=== PATIENT | female | born 1995 | race African-American/Black ===

== ENCOUNTER 2016-09-29 00:58 | Emergency (ER) | payer OTHER ==
[~2016-09-29] VITALS: Ht 170.2 cm; Wt 122.5 kg
[~2016-09-29 00:58] MED LIST: ZOFR4TAB PO
[2016-09-29 01:01] VITALS: BP 137/66; PULSE 136; RESP 20; TEMP 102.8; O2SAT 96
[2016-09-29 01:53] VITALS: BP 142/74; PULSE 119; RESP 18; O2SAT 100
[2016-09-29] MEDS ORDERED: ACETAMINOPHEN 325 MG TAB PO ONE (02:15)
[2016-09-29] MEDS ORDERED: ONDANSETRON HCL 4 MG/2 ML VIAL IV ONE (02:15)
[2016-09-29] MEDS ORDERED: SODIUM CHLOR 0.9% 1000 ML INJ 1,000 ML IV ONE ×2 (02:15→03:15)
[2016-09-29 02:30] VITALS: O2SAT 100
[2016-09-29 02:34] LABS: AUTOMATED NEUTROPHIL # 6.7 TH/MM3 (1.8-7.7); BASOPHIL % 0.3 % (0.0-2.0); EOSINOPHIL % 0.1 % (0.0-4.0); HEMATOCRIT 30.1 % (35.0-46.0); HEMO FLAGS AUTO DIFF; LYMPH % 2.5 % (9.0-44.0); LYMPHOCYTE # 0.2 TH/MM3 (1.0-4.8); MEAN CELL VOLUME 63.8 FL (80.0-100.0); MEAN CORPUSCULAR HEMOGLOBIN 20.4 PG (27.0-34.0); MONO % 7.1 % (0.0-8.0); PLATELET COUNT 258 TH/MM3 (150-450); RED BLOOD COUNT 4.72 MIL/MM3 (4.00-5.30); WHITE BLOOD COUNT 7.4 TH/MM3 (4.0-11.0)
[2016-09-29 02:48] LABS: ALT (GPT) 28 U/L (10-53); ANION GAP 8 MEQ/L (5-15); AST (GOT) 15 U/L (15-37); BICARBONATE 24.7 MEQ/L (21.0-32.0); BLOOD UREA NITROGEN 10 MG/DL (7-18); CHLORIDE 107 MEQ/L (98-107); GLOMERULAR FILTRATION RATE 79 ML/MIN (>89); POTASSIUM 3.4 MEQ/L (3.5-5.1); SODIUM (NA) 140 MEQ/L (136-145)
[2016-09-29 02:51] LABS: ALKALINE PHOSPHATASE 76 U/L (45-117); TOTAL BILIRUBIN ADULT 0.3 MG/DL (0.2-1.0)
[2016-09-29 03:10] LABS: OVALOCYTES 1+ (NORMAL); SCAN/DIFF AUTO DIFF CONFIRMED
[2016-09-29] MEDS ORDERED: OSELTAMIVIR PHOSPHATE 75 MG CAP PO ONE (03:15)
[2016-09-29] MEDS ORDERED: KETOROLAC TROMETHAMINE 30 MG/ML (IVP) VIAL IV PUSH ONE (03:15)
[2016-09-29] MEDS ORDERED: ZOFR4TAB3 SL (03:21)
[2016-09-29] MEDS ORDERED: OSEL75 PO (03:21)
--- NOTE | 2016-09-29 03:29 | PD ---
HPI Chief Complaint: Cold / Flu Symptoms Time Seen by Provider: 02:02 Travel History International Travel<30 days: No Contact w/Intl Traveler<30days: No Traveled to known affect area: No History of Present Illness HPI The patient is a 21 year old female who presents to the [facility] emergency department with a history of cough, congestion, body aches that began 2 days ago. She reports that several people at her job are currently sick with cough and congestion. She denies getting her influenza vaccination. The patient reports that her cough is been productive of yellow sputum. She reports that her nasal discharge is clear in color. She reports that she began to have fevers and chills. She reports a two-day she's had nausea and vomiting 2. She reports have an associated bitemporal headache. She denies having any neck pain. The patient denies any recent chest pain, shortness of breath, abdominal pain, diarrhea, urinary symptoms, or neurologic symptoms. LMP: August 17, 2016. She denies any possibility of being . She reports that her menstrual cycles are irregular. [facility] Past Medical History Narrative Medical The patient's past medical history is significant for irregular menstrual cycles , history of asthma Asthma: Yes Diminished Hearing: No Immunizations Current: Yes ?: Not LMP: 08/17/16 Past Surgical History Narrative Surgical The patient's past surgical history is significant for an appendectomy. Appendectomy: Yes Genitourinary Surgery: No Other Surgery: No Social History Alcohol Use: Yes (OCC) Tobacco Use: No Substance Use: No (DENIES) Allergies-Medications (Allergen,Severity, Reaction): Coded Allergies: No Known Allergies (Verified , 09/29/16) Reported Meds & Prescriptions Reported Meds & Active Scripts Active Zofran Odt (Ondansetron Odt) 4 Mg Tab 4 Mg SL Q6HR PRN Tamiflu (Oseltamivir Phosphate) 75 Mg Cap 75 Mg PO BID Zofran (Ondansetron HCl) 4 Mg Tab 4 Mg PO Q6HR PRN Review of Systems Except as stated in HPI: all other systems reviewed are Neg General / Constitutional: Positive: Fever, Chills Eyes: No: Visual changes HENT: Positive: Headaches, Rhinorrhea, Congestion, No: Neck Stiffness, Neck Pain Cardiovascular: No: Chest Pain or Discomfort, Dyspnea on exertion Respiratory: Positive: Cough, No: Shortness of Breath Gastrointestinal: Positive: Nausea, Vomiting, Loss of Appetite, No: Diarrhea, Abdominal Pain, Changes in Bowel Habits, Indigestion Genitourinary: No: Dysuria, Flank Pain Musculoskeletal: Positive: Myalgias, No: Pain Skin: No Rash Neurologic: Positive: Weakness (generalized weakness), Headache, No: Focal Abnormalities, Change in Mentation, Slurred Speech, Sensory Disturbance Psychiatric: No: Depression Endocrine: No: Polydipsia Hematologic/Lymphatic: No: Easy Bruising Physical Exam Narrative General: The patient is a well-developed well-nourished female in no acute distress. Head and Neck exam: Head is normocephalic atraumatic. Eyes: Pupils are equal round and reactive to light. Nose: Midline septum with erythematous edematous nasal mucosa and a clear nasal discharge. Mouth: Dentition unremarkable. Moist mucus membranes. Posterior oropharynx is slightly erythematous. No tonsillar hypertrophy. Uvula midline. Airway patent. Neck: No palpable lymphadenopathy. No nuchal rigidity. No thyromegaly. Cardiovascular: Sinus tachycardia in the low 100s without murmurs, gallops, or rubs. Lungs: Clear to auscultation bilaterally. No wheezes, rhonchi, or rales. Abdomen: Soft, without tenderness to palpation in all 4 quadrants of the abdomen. No guarding, rebound, or rigidity. Normal bowel sounds are audible. No tenderness on palpation of McBurney's point. Extremities: No clubbing, cyanosis, or edema. 2+ pulses in all 4 extremities. No calf tenderness on palpation. Back: No spinous process tenderness to palpation. No costovertebral angle tenderness to palpation. Neurologic Exam: Grossly nonfocal. Skin Exam: No rash noted. Intact skin that is warm and dry. Data Data Last Documented VS Vital Signs Date Time Temp Pulse Resp B/P Pulse Ox O2 Delivery O2 Flow Rate FiO2 09/29/16 05:17 99.0 100 18 129/63 100 Room Air Orders Complete Blood Count With Diff (09/29/16 02:03) Comprehensive Metabolic Panel (09/29/16 02:03) Blood Culture (09/29/16 02:03) Lipase (09/29/16 02:03) Urinalysis - C+S If Indicated (09/29/16 02:03) Influenzae A/B Antigen (09/29/16 02:03) Iv Access Insert/Monitor (09/29/16 02:03) Ecg Monitoring (09/29/16 02:03) Oximetry (09/29/16 02:03) Ed Urine Pregnancytest Poc (09/29/16 02:03) Lactic Acid Sepsis Protocol (09/29/16 02:03) Sodium Chlor 0.9% 1000 Ml Inj (Ns 1000 M (09/29/16 02:15) Ondansetron Inj (Zofran Inj) (09/29/16 02:15) Acetaminophen (Tylenol) (09/29/16 02:15) Sodium Chlor 0.9% 1000 Ml Inj (Ns 1000 M (09/29/16 03:15) Ketorolac Inj (Toradol Inj) (09/29/16 03:15) Oseltamivir (Tamiflu) (09/29/16 03:15) Chest, Single Ap (09/29/16 03:29) Labs Laboratory Tests Test 09/29/16 09/29/16 02:20 03:55 White Blood Count 7.4 TH/MM3 Red Blood Count 4.72 MIL/MM3 Hemoglobin 9.7 GM/DL Hematocrit 30.1 % Mean Corpuscular Volume 63.8 FL Mean Corpuscular Hemoglobin 20.4 PG Mean Corpuscular Hemoglobin 32.0 % Concent Red Cell Distribution Width 19.0 % Platelet Count 258 TH/MM3 Mean Platelet Volume 8.8 FL Neutrophils (%) (Auto) 90.0 % Lymphocytes (%) (Auto) 2.5 % Monocytes (%) (Auto) 7.1 % Eosinophils (%) (Auto) 0.1 % Basophils (%) (Auto) 0.3 % Neutrophils # (Auto) 6.7 TH/MM3 Lymphocytes # (Auto) 0.2 TH/MM3 Monocytes # (Auto) 0.5 TH/MM3 Eosinophils # (Auto) 0.0 TH/MM3 Basophils # (Auto) 0.0 TH/MM3 CBC Comment AUTO DIFF Differential Comment AUTO DIFF CONFIRMED Ovalocytes 1+ Sodium Level 140 MEQ/L Potassium Level 3.4 MEQ/L Chloride Level 107 MEQ/L Carbon Dioxide Level 24.7 MEQ/L Anion Gap 8 MEQ/L Blood Urea Nitrogen 10 MG/DL Creatinine 1.04 MG/DL Estimat Glomerular Filtration 79 ML/MIN Rate Random Glucose 107 MG/DL Lactic Acid Level 1.0 mmol/L Calcium Level 8.8 MG/DL Total Bilirubin 0.3 MG/DL Aspartate Amino Transf 15 U/L (AST/SGOT) Alanine Aminotransferase 28 U/L (ALT/SGPT) Alkaline Phosphatase 76 U/L Total Protein 7.7 GM/DL Albumin 3.6 GM/DL Lipase 65 U/L Urine Color LIGHT-YELLOW Urine Turbidity CLEAR Urine pH 5.5 Urine Specific Walters 1.011 Urine Protein NEG mg/dL Urine Glucose (UA) NEG mg/dL Urine Ketones NEG mg/dL Urine Occult Blood NEG Urine Nitrite NEG Urine Bilirubin NEG Urine Urobilinogen LESS THAN 2.0 MG/DL Urine Leukocyte Esterase NEG Urine RBC LESS THAN 1 /hpf Urine WBC 1 /hpf Urine Squamous Epithelial 1 /hpf Cells Urine Mucus FEW /lpf Microscopic Urinalysis Comment CULT NOT INDICATED MDM Medical Decision Making Medical Screen Exam Complete: Yes Emergency Medical Condition: Yes Medical Record Reviewed: Yes Interpretation(s) Last Impressions Chest X-Ray 09/29/16 0329 Signed Impressions: Service Date/Time: Thursday, September 29, 2016 03:42 - CONCLUSION: No acute disease. Josias Lee MD Differential Diagnosis Influenza, versus pneumonia, versus bronchitis, versus viral syndrome, versus dehydration, versus pyelonephritis Narrative Course During the course of the patients emergency department visit, the patients history, examination, and differential diagnosis were reviewed with the patient. The patient had IV access obtained and blood work sent for analysis. The patient was placed on a clinical research monitor with oximetry and blood pressure monitoring. The patient was provided normal saline 1 L IV fluid bolus, Zofran 4 mg IV 1, Tylenol 650 by mouth 1. The patient was given Toradol 15 mg IV times one for body aches. The patients laboratory studies were reviewed and remarkable for influenza antigen a was positive. White count is 7.4, hemoglobin 9.7, platelets 258 with 90.0 neutrophils, lymphocytes 2.5, CMP is remarkable for a potassium of 3.4, creatinine 1.04, glucose 107, lactic acid 1.0, lipase 25. The patient was given a second liter of normal saline IV fluids. The patient was started on Tamiflu 75 mg by mouth 1. Radiology studies were reviewed and remarkable for a chest x-ray that shows no acute abnormality. The patient will be discharged home with a work excuse for the next few days. The patient was given a prescription for Tamiflu and Zofran. The patient is resting comfortably and feels better, is alert and in no distress. The patients results and examination findings were discussed with the patient. The repeat examination is unremarkable and benign. The history, exam, diagnostic testing, and current condition do not suggest any significant pathology to warrant further testing, continued ED treatment, admission, or surgical evaluation at this point. The vital signs have been stable. The patient does not have uncontrollable pain, intractable vomiting, or other significant symptoms. The patient's condition is stable and appropriate for discharge. The patient will pursue further outpatient evaluation with a primary care physician or other designated or consulting physician as indicated in the discharge instructions. The patient expressed understanding and was agreeable with this plan. Diagnosis Primary Impression: Influenza A Referrals: Primary Care Physician 1 week Patient Instructions: General Instructions, H1N1 Influenza (ED) Departure Forms: Tests/Procedures, Work Release Enter return to work date: Oct 02, 2016 Med/Other Pt SpecificInfo: Prescription(s) given Scripts Ondansetron Odt (Zofran Odt)4 Mg Tab4 Mg SL Q6HR PRN (Nausea/Vomiting) #7 TAB Ref 0 Prov:Nani Watt MD 09/29/16 Oseltamivir (Tamiflu)75 Mg Cap75 Mg PO BID #9 CAP Ref 0 Prov:Nani Watt MD 09/29/16 Disposition: 01 DISCHARGE HOME Condition: Stable Nani Watt MD Sep 29, 2016 03:29
[2016-09-29 04:23] LABS: BLOOD, URINE NEG (NEG); COMMENT (UR) CULT NOT INDICATED; CULTURE IF INDICATED CULT NOT INDICATED; GLUCOSE,URINE NEG (NEG); KETONE, URINE NEG (NEG); MUCUS URINE FEW /lpf (OCC); NITRITE,URINE NEG (NEG); PH, URINE 5.5 (5.0-8.5); SQUAMOUS EPITHELIAL CELL URINE 1 /hpf (0-5); URINE COLOR LIGHT-YELLOW (YELLW/STRAW)
--- NOTE | 2016-09-29 05:16 | RADRPT ---
EXAM DATE/TIME: 09/29/2016 03:42 [facility] COMPARISON: No previous studies available for comparison. INDICATIONS : Pt having cough, fever, and flu symptoms x 3 days. MEDICAL HISTORY : None. SURGICAL HISTORY : None. ENCOUNTER: Initial ACUITY: 3 days PAIN SCORE: 8/10 LOCATION: Bilateral chest FINDINGS: A single view of the chest demonstrates the lungs to be symmetrically aerated without evidence of mas s, infiltrate or effusion. The cardiomediastinal contours are unremarkable. Osseous structures are intact. CONCLUSION: No acute disease. Josias Lee MD on September 29, 2016 at 5:14 Board Certified Radiologist. This report was verified electronically.
[2016-09-29 05:17] VITALS: BP 129/63; PULSE 100; RESP 18; TEMP 99; O2SAT 100
== END 2016-09-29 05:33 | disposition home or self-care (01) ==
LOC: NEPE 00:58
DX: J09.X2 Influenza due to identified novel influenza A virus with other respiratory manifestations (principal); R11.2 Nausea with vomiting, unspecified; J45.909 Unspecified asthma, uncomplicated
CPT/HCPCS: 71010; 80053; 81001; 83605; 83690; 84703; 85025; 87040; 87804; 96361; 96374; 96375; 99284; J1885; J2405; J7030

== ENCOUNTER 2016-11-21 21:05 | Emergency (ER) | payer OTHER ==
[~2016-11-21] VITALS: Ht 170.2 cm; Wt 118.0 kg
[~2016-11-21 21:05] MED LIST changes: +OSEL75 PO; +ZOFR4TAB3 SL
[2016-11-21 21:07] VITALS: BP 137/73; PULSE 98; RESP 14; TEMP 97.8; O2SAT 96
[2016-11-21] MEDS ORDERED: CYCLOBENZAPRINE HCL 10 MG TAB PO ONE (22:15)
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
[2016-11-21] MEDS ORDERED: NAPR500 PO (22:22)
[2016-11-21] MEDS ORDERED: CYCL1TAB29 PO (22:22)
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
== END 2016-11-21 23:17 | disposition home or self-care (01) ==
LOC: NETRI 21:05
DX: S16.1XXA Strain of muscle, fascia and tendon at neck level, initial encounter (principal); S39.012A Strain of muscle, fascia and tendon of lower back, initial encounter; Z87.09 Personal history of other diseases of the respiratory system; V89.2XXA Person injured in unspecified motor-vehicle accident, traffic, initial encounter
CPT/HCPCS: 72050; 72100; 99283

== ENCOUNTER 2017-11-11 15:21 | Emergency (ER) | payer SELFPAY ==
[~2017-11-11] VITALS: Ht 170.2 cm; Wt 120.0 kg
[~2017-11-11 15:21] MED LIST changes: +CYCL10TA PO; +NAPR500 PO
[2017-11-11 15:52] VITALS: BP 140/65; PULSE 99; RESP 16; TEMP 98.1; O2SAT 99
[2017-11-11] MEDS ORDERED: BIRTH CONTROL (16:32)
--- NOTE | 2017-11-11 16:36 | PD ---
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 Patient states she was taken off of control in May, and then restarted the beginning of September. She is currently on control but has had 2 periods in the last month and now has heavy bleeding with passage of clots. She has minimal pain with just intermittent cramping. She feels fine otherwise. She typically sees Dr. Hilliard for her [employer]KE [employer]ER. She has an appointment with him in February. She has no fever, chills, dysuria, nausea, vomiting, or other symptoms. She has no known drug allergies. [facility] Past Medical History Asthma: Yes Diminished Hearing: No Immunizations Current: Yes ?: Unknown Past Surgical History Appendectomy: Yes (2000) Genitourinary Surgery: No Other Surgery: No Social History Alcohol Use: Yes (OCC) Tobacco Use: No Substance Use: Yes (MARIJUANA OCC) Allergies-Medications (Allergen,Severity, Reaction): Coded Allergies: No Known Allergies (Verified Adverse Reaction, Unknown, 11/11/17) Reported Meds & Prescriptions Reported Meds & Active Scripts Active Reported Orsythia (Levonorgestrel-Ethinyl Estradiol) 0.1-20 mg-mcg Tab 1 Tab PO DAILY Review of Systems Except as stated in HPI: all other systems reviewed are Neg General / Constitutional: No: Fever Eyes: No: Visual changes HENT: No: Headaches Cardiovascular: No: Chest Pain or Discomfort Respiratory: No: Shortness of Breath Gastrointestinal: No: Abdominal Pain Genitourinary: No: Dysuria Musculoskeletal: No: Pain Skin: No Rash Neurologic: No: Weakness Psychiatric: No: Depression Endocrine: No: Polydipsia Hematologic/Lymphatic: No: Easy Bruising Physical Exam Narrative GENERAL: Patient appears in no obvious distress SKIN: Warm and dry. Normal color. Normal turgor HEAD: Atraumatic. Normocephalic. EYES: Pupils equal and round. No scleral icterus. No injection or drainage. ENT: No nasal bleeding or discharge. Mucous membranes pink and moist. NECK: Trachea midline. No JVD. CARDIOVASCULAR: Regular rate and rhythm. RESPIRATORY: No accessory muscle use. Clear to auscultation. Breath sounds equal bilaterally. GASTROINTESTINAL: Abdomen soft, non-tender, nondistended. Hepatic and splenic margins not palpable. No CVA tenderness. MUSCULOSKELETAL: Extremities without clubbing, cyanosis, or edema. No obvious deformities. NEUROLOGICAL: Awake and alert. No obvious cranial nerve deficits. Motor grossly within normal limits. Five out of 5 muscle strength in the arms and legs. Normal speech. PSYCHIATRIC: Appropriate mood and affect; insight and judgment normal. Data Data Last Documented VS Vital Signs Date Time Temp Pulse Resp B/P (MAP) Pulse Ox O2 Delivery O2 Flow Rate FiO2 11/11/17 15:52 98.1 99 16 140/65 (90) 99 Orders Orders Complete Blood Count With Diff (11/11/17 15:55) Comprehensive Metabolic Panel (11/11/17 15:55) Ed Urine Pregnancytest Poc (11/11/17 16:01) Urinalysis - C+S If Indicated (11/11/17 16:01) Type And Screen (11/11/17 16:32) Us Pelvis Comp Underwater Hunter Trapper/Non-Preg (11/11/17 ) Sodium Chloride 0.9% Flush (Ns Flush) (11/11/17 16:45) Coag Profile (11/11/17 16:32) Sodium Chlor 0.9% 1000 Ml Inj (Ns 1000 M (11/11/17 16:45) Labs Laboratory Tests Test 11/11/17 16:00 11/11/17 16:35 11/11/17 16:45 White Blood Count 7.6 TH/MM3 Red Blood Count 4.62 MIL/MM3 Hemoglobin 10.9 GM/DL Hematocrit 34.1 % Mean Corpuscular Volume 73.8 FL Mean Corpuscular Hemoglobin 23.7 PG Mean Corpuscular Hemoglobin Concent 32.1 % Red Cell Distribution Width 17.4 % Platelet Count 310 TH/MM3 Mean Platelet Volume 8.1 FL Neutrophils (%) (Auto) 55.6 % Lymphocytes (%) (Auto) 35.9 % Monocytes (%) (Auto) 6.2 % Eosinophils (%) (Auto) 1.6 % Basophils (%) (Auto) 0.7 % Neutrophils # (Auto) 4.2 TH/MM3 Lymphocytes # (Auto) 2.7 TH/MM3 Monocytes # (Auto) 0.5 TH/MM3 Eosinophils # (Auto) 0.1 TH/MM3 Basophils # (Auto) 0.1 TH/MM3 CBC Comment DIFF FINAL Differential Comment Blood Urea Nitrogen 13 MG/DL Creatinine 0.88 MG/DL Random Glucose 76 MG/DL Total Protein 8.0 GM/DL Albumin 3.9 GM/DL Calcium Level 9.0 MG/DL Alkaline Phosphatase 83 U/L Aspartate Amino Transf (AST/SGOT) 12 U/L Alanine Aminotransferase (ALT/SGPT) 20 U/L Total Bilirubin 0.2 MG/DL Sodium Level 140 MEQ/L Potassium Level 3.8 MEQ/L Chloride Level 108 MEQ/L Carbon Dioxide Level 28.0 MEQ/L Anion Gap 4 MEQ/L Estimat Glomerular Filtration Rate 96 ML/MIN Urine Color YELLOW Urine Turbidity CLEAR Urine pH 6.0 Urine Specific [place] 1.016 Urine Protein TRACE mg/dL Urine Glucose (UA) NEG mg/dL Urine Ketones NEG mg/dL Urine Occult Blood LARGE Urine Nitrite NEG Urine Bilirubin NEG Urine Urobilinogen LESS THAN 2.0 MG/DL Urine Leukocyte Esterase SMALL Urine RBC 2 /hpf Urine WBC 1 /hpf Urine Squamous Epithelial Cells 1 /hpf Microscopic Urinalysis Comment CULT NOT INDICATED Prothrombin Time 10.2 SEC Prothromb Time International Ratio 1.0 RATIO Activated Partial Thromboplast Time 31.3 SEC MDM Medical Decision Making Medical Screen Exam Complete: Yes Emergency Medical Condition: Yes Medical Record Reviewed: Yes Differential Diagnosis Menorrhagia. . Anemia. Narrative Course Patient is medically stable at time of exam. CBC, CMP, coagulation studies, and urinalysis as urine is ordered. Type and screen is ordered. IV access is obtained and the patient is given 1000 mL of normal saline bolus. Pelvic ultrasound is ordered. CBC remarkable for a hemoglobin of 10.9, hematocrit 34.1. Platelets are normal at 310 Coagulation studies are within normal limits. CMP is essentially unremarkable. Urinalysis shows large occult blood but no signs of infection. Ultrasound showed no acute process per radiologist. Patient discussed with Dr. Garnett, and the patient is felt stable, and further medical management is not felt necessary at this time. Patient should follow-up with her [employer] in the next couple of days. Patient can return to the emergency department if symptoms worsen as discussed. Work note is given for today. 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 Platelets are normal at 310 Coagulation studies are within normal limits. CMP is essentially unremarkable. Urinalysis shows large occult blood but no signs of infection. Ultrasound showed no acute process per radiologist. Patient discussed with Dr. Garnett, and the patient is felt stable, and further medical management is not felt necessary at this time. Patient should follow-up with her [employer] in the next couple of days. Patient can return to the emergency department if symptoms worsen as discussed. Work note is given for today. Med/Other Pt SpecificInfo: No Meds Exist/No RX given Disposition: 01 DISCHARGE HOME Condition: Stable Hardik Patel Nov 11, 2017 16:36
[2017-11-11] MEDS ORDERED: SODIUM CHLORIDE 0.9% FLUSH 10 ML FLUSH IVF PRN (16:45)
[2017-11-11] MEDS ORDERED: SODIUM CHLOR 0.9% 1000 ML INJ 1,000 ML IV ONE (16:45)
[2017-11-11 16:51] LABS: AUTOMATED NEUTROPHIL # 4.2 TH/MM3 (1.8-7.7); BASOPHIL # 0.1 TH/MM3 (0-0.2); BASOPHIL % 0.7 % (0.0-2.0); EOSINOPHIL # 0.1 TH/MM3 (0-0.4); EOSINOPHIL % 1.6 % (0.0-4.0); HEMATOCRIT 34.1 % (35.0-46.0); HEMOGLOBIN 10.9 GM/DL (11.6-15.3); LYMPH % 35.9 % (9.0-44.0); LYMPHOCYTE # 2.7 TH/MM3 (1.0-4.8); MEAN CELL VOLUME 73.8 FL (80.0-100.0); MEAN CORPUSCULAR HEMOGLOBIN 23.7 PG (27.0-34.0); MEAN CORPUSCULAR HGB CONC 32.1 % (32.0-36.0); MEAN PLATELET VOLUME 8.1 FL (7.0-11.0); MONO % 6.2 % (0.0-8.0); MONOCYTE # 0.5 TH/MM3 (0-0.9); NEUT % 55.6 % (16.0-70.0); PLATELET COUNT 310 TH/MM3 (150-450); RED BLOOD COUNT 4.62 MIL/MM3 (4.00-5.30); RED CELL DISTRIBUTION WIDTH 17.4 % (11.6-17.2); WHITE BLOOD COUNT 7.6 TH/MM3 (4.0-11.0)
[2017-11-11] MEDS ORDERED: ORSYTAB PO (16:58)
[2017-11-11 17:07] LABS: ALBUMIN 3.9 GM/DL (3.4-5.0); AST (GOT) 12 U/L (15-37); BLOOD UREA NITROGEN 13 MG/DL (7-18); CHLORIDE 108 MEQ/L (98-107); CREATININE 0.88 MG/DL (0.50-1.00); GLOMERULAR FILTRATION RATE 96 ML/MIN (>89); GLUCOSE,RANDOM 76 MG/DL (74-106); SODIUM (NA) 140 MEQ/L (136-145)
[2017-11-11 17:11] LABS: ALKALINE PHOSPHATASE 83 U/L (45-117); ALT (GPT) 20 U/L (10-53); TOTAL BILIRUBIN ADULT 0.2 MG/DL (0.2-1.0)
[2017-11-11 17:22] LABS: BILIRUBIN, URINE NEG (NEG); BLOOD, URINE LARGE (NEG); GLUCOSE,URINE NEG (NEG); KETONE, URINE NEG (NEG); NITRITE,URINE NEG (NEG); SQUAMOUS EPITHELIAL CELL URINE 1 /hpf (0-5); URINE COLOR YELLOW (YELLW/STRAW); URINE LEUKOCYTE ESTERASE SMALL (NEG)
[2017-11-11 17:30] LABS: PROTHROMBIN TIME - PATIENT 10.2 SEC (9.8-11.6)
--- NOTE | 2017-11-11 17:39 | RADRPT ---
EXAM DATE/TIME: 11/11/2017 17:14 [place] COMPARISON: No previous studies available for comparison. INDICATIONS : Abnormal bleeding. MEDICAL HISTORY : Abnormal vaginal bleeding. SURGICAL HISTORY : None. ENCOUNTER: Initial ACUITY: 1 day PAIN SCORE: 0/10 LOCATION: Bilateral pelvis MEASUREMENTS: UTERUS: 8.1 x 4.6 x 3.6 cm ENDOMETRIAL STRIPE: 8 mm RIGHT OVARY: 4.8 x 2.8 x 2.1 cm LEFT OVARY: 4.2 x 2.4 x 2.3 cm FINDINGS: UTERUS: The myometrium has homogeneous echotexture without mass. RIGHT OVARY: Ovary contains no mass or significant cystic lesion. LEFT OVARY: Ovary contains no mass or significant cystic lesion. MISCELLANEOUS: No free fluid. CONCLUSION: Normal examination. Josias Lee MD on November 11, 2017 at 17:37 Board Certified Radiologist. This report was verified electronically.
[2017-11-11 18:14] VITALS: BP 135/77; PULSE 84; RESP 18; O2SAT 100
== END 2017-11-11 18:15 | disposition home or self-care (01) ==
LOC: NEPD 15:21
DX: N93.9 Abnormal uterine and vaginal bleeding, unspecified (principal); R10.9 Unspecified abdominal pain; J45.909 Unspecified asthma, uncomplicated
CPT/HCPCS: 76856; 80053; 81001; 84703; 85025; 85610; 85730; 86850; 86900; 86901; 99284